=== PATIENT | female | born 1980 | race African-American/Black ===

== ENCOUNTER 2018-06-19 00:50 | Emergency (ER) | payer OTHER ==
[2018-06-19 02:06] VITALS: BP 119/72; PULSE 81; TEMP 98.6; BMI 29.0
[2018-06-19] MEDS ORDERED: KETOROLAC TROMETHAMINE 30 MG/1 ML VIAL IM ONE (03:48)
[2018-06-19] MEDS ORDERED: DOCUSATE SODIUM 100 MG CAPSULE (FP) PO ONE ×2 (03:48→03:51)
[2018-06-19] MEDS ORDERED: KETOROLAC TROMETHAMINE 15 MG/ML VIAL ONE (03:51)
--- NOTE | 2018-06-19 04:03 | PDOC ---
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 Also mentions having lower back and abdominal cramping. Patient mentions having 5 childbirths (3 vaginal and 2 ; most recent was 2 years ago). Denies trauma, heavy lifting or other recent abdominal/pelvic surgeries. Denies fever, sob, cp , n/v/d, urinary complaints, vaginal bleeding, vaginal discharge. 06/19/18 03:58 Past History - Past Medical History Allergies/Adverse Reactions: Allergies Allergy/AdvReac Type Severity Reaction Status Date / Time No Known Allergies Allergy Verified 06/19/18 02:33 Home Medications: Ambulatory Orders Docusate Sodium [Colace] 100 mg PO BID PRN #30 capsule 06/19/18 Sennosides [Senna] 15 mg PO DAILY PRN #12 tablet 06/19/18 Asthma: No Cancer: No Cardiac Disorders: No COPD: No Diabetes: No HTN: No Seizures: No Thyroid Disease: No Other medical history: Pt denies - Surgical History Appendectomy: No GI Surgery: No - Reproductive History (#): 12 Para: 4 Therapeutic (s) & number: Yes (5) Spontaneous : 2 - Immunization History Immunization Up to Date: Yes - Suicide/Smoking/Psychosocial Hx Smoking History: Current every day smoker Have you smoked in the past 12 months: No Number of Cigarettes Smoked Daily: 10 Information on smoking cessation initiated: No Hx Alcohol Use: No Drug/Substance Use Hx: No Substance Use Type: None Hx Substance Use Treatment: No Review of Systems - Review of Systems Comments:: See HPI 06/19/18 04:01 *Physical Exam - Vital Signs Last Vital Signs Temp Pulse Resp BP Pulse Ox 98.6 F 81 19 119/72 96 06/19/18 01:20 06/19/18 01:20 06/19/18 01:20 06/19/18 01:20 06/19/18 01:20 - Physical Exam General Appearance: Yes: Nourished, Appropriately Dressed. No: Apparent Distress Respiratory/Chest: positive: Lungs Clear, Normal Breath Sounds Cardiovascular: positive: Regular Rhythm, Regular Rate, S1, S2 Female Pelvic Exam: positive: other (+Uterine prolapse (2nd degree)). negative : discharge, lesions, Bartholin mass, adnexal tenderness, vaginal bleeding Gastrointestinal/Abdominal: positive: Normal Bowel Sounds, Soft. negative: Tender, Protuberent, Distended, Guarding, Rebound, Tenderness, Mass Musculoskeletal: negative: CVA Tenderness, Vertebral Tenderness Extremity: positive: Normal Inspection Neurologic: positive: Fully Oriented ED Treatment Course - ADDITIONAL ORDERS Additional order review: Laboratory Results 06/19/18 03:05 Urine HCG, Qual Negative Medical Decision Making - Medical Decision Making 37 y/o F with Stage 2 uterine prolapse, likely from constipation. Other risk factors include multiple childbirths. Will give patient Toradol and Colace. 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 06/19/18 04:03 *DC/Admit/Observation/Transfer Diagnosis at time of Disposition: Uterine prolapse - Discharge Dispostion Disposition: HOME Condition at time of disposition: Good Decision to Admit order: No - Prescriptions Prescriptions: Docusate Sodium [Colace] 100 mg PO BID PRN #30 capsule PRN Reason: Constipation Sennosides [Senna] 15 mg PO DAILY PRN #12 tablet PRN Reason: Constipation - Referrals - Patient Instructions Printed Discharge Instructions: Uterine Prolapse, Constipation Additional Instructions: Thank you for choosing [facility]. It was a pleasure taking care of you. You have uterine prolapse, possibly from constipation You will need to see a sleeping car service attendant for further evaluation and intervention In the interim, take stool softeners (e.g. Colace or Senna) to help with constipation, drink plenty of water and eat foods high in fiber Do not take Senna for more than 1 week. Return to the Emergency Department if your symptoms worsen or persist, you have fever, shortness of breath, chest pain, severe abdominal pain, vomiting, vaginal bleeding or other concerning symptoms. - Post Discharge Activity
--- NOTE | 2018-06-19 05:47 | PDOC ---
*Physical Exam - Vital Signs Last Vital Signs Temp Pulse Resp BP Pulse Ox 98.6 F 81 19 119/72 96 06/19/18 01:20 06/19/18 01:20 06/19/18 01:20 06/19/18 01:20 06/19/18 01:20 ED Treatment Course - ADDITIONAL ORDERS Additional order review: Laboratory Results 06/19/18 03:05 Urine HCG, Qual Negative - Medications Given in the ED: ED Medications Discontinued Medications Generic Name Dose Route Start Last Admin Trade Name Kennedy PRN Reason Stop Dose Admin Docusate Sodium 100 mg 06/19/18 03:48 06/19/18 04:01 Colace - PO 06/19/18 03:49 100 mg ONCE ONE Administration Ketorolac Tromethamine 30 mg 06/19/18 03:48 06/19/18 04:01 Toradol Injection - IM 06/19/18 03:49 30 mg ONCE ONE Administration Medical Decision Making - Medical Decision Making 06/19/18 05:46 37F multiparous here with palpable mass in vaginal vault, sudden appearance while straining during BM exam consistent with vaginal prolapse, no bleeding, 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 It was a pleasure taking care of you. You have uterine prolapse, possibly from constipation You will need to see a beehive kiln charcoal burner for further evaluation and intervention In the interim, take stool softeners (e.g. Colace or Senna) to help with constipation, drink plenty of water and eat foods high in fiber Do not take Senna for more than 1 week. Return to the Emergency Department if your symptoms worsen or persist, you have fever, shortness of breath, chest pain, severe abdominal pain, vomiting, vaginal bleeding or other concerning symptoms. - Post Discharge Activity
== END 2018-06-19 04:21 | disposition home or self-care (01) ==
LOC: JER 00:50
PROC: 3E0233Z Introduction of Anti-inflammatory into Muscle, Percutaneous Approach (ICD-10-PCS; principal; 2018-06-19)
DX: N81.4 Uterovaginal prolapse, unspecified (principal); F17.210 Nicotine dependence, cigarettes, uncomplicated; F11.20 Opioid dependence, uncomplicated
CPT/HCPCS: 84703; 99283-25